=== PATIENT | male | born 1985 | race Caucasian/White ===

== ENCOUNTER 2018-10-16 13:55 | Emergency (ER) | payer OTHER, SELFPAY ==
--- NOTE | 2018-10-16 14:23 | RAD ---
TWO VIEW CHEST: Indication: Cough. FINDINGS: Lungs are clear. Cardiac silhouette is normal in size. Osseous structures are intact. IMPRESSION: No focal consolidation. POS: [facility]
== END 2018-10-16 14:31 | disposition home or self-care (01) ==
LOC: SCSER 13:55
DX: R05 Cough (principal); F17.220 Nicotine dependence, chewing tobacco, uncomplicated
CPT/HCPCS: 71046

== ENCOUNTER 2018-12-26 12:59 | Outpatient (CLI) | payer MEDICAID, OTHER ==
--- NOTE | 2018-12-26 14:43 | MRI ---
MRI LUMBAR SPINE WITHOUT CONTRAST: Date: 12/26/18 HISTORY: M54.16 lumbar radiculopathy. Right leg pain and back pain. COMPARISON: None. FINDINGS: Aortic contour is nonaneurysmal. No retroperitoneal adenopathy. Kidneys are unremarkable. Paraspinal musculature is normal. No marrow infiltrative process. Conus medullaris terminates at the superior end plate of L2. Levels are as follows: L1-2: Normal disc. No neural foraminal or spinal canal narrowing. L2-3: Normal disc. No neural foraminal or spinal canal narrowing. L3-4: Normal disc. No neural foraminal or spinal canal narrowing. L4-5: Mild disc desiccation and posterior degenerative disc space height loss. Small broad based pos terior disc osteophyte complex with superimposed central annular fissure. There appears to be abutme nt of the right exiting L4 nerve root due the posterior disc osteophyte complex. Moderate facet arthr osis at this level. L5-S1: Mild disc desiccation. Posterior degenerative disc space height loss. There is a small centra l posterior disc protrusion which is central, with caudad extension 2.0 mm. This is superimposed cent ral annular fissure. No neural foraminal or spinal canal narrowing. IMPRESSION: Spondylosis centered at L4-5 and L5-S1 without significant change. There does appear to be right-side d nerve root abutment at L4-5 due to the posterior disc osteophyte complex. POS: [facility]
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
== END 2018-12-26 13:00 | disposition home or self-care (01) ==
LOC: TBSIIMAG 12:59
PROVIDERS: ATTEND Neurological Surgery
DX: M47.26 Other spondylosis with radiculopathy, lumbar region (principal); M47.27 Other spondylosis with radiculopathy, lumbosacral region; M25.78 Osteophyte, vertebrae
CPT/HCPCS: 72131; 72148

== ENCOUNTER 2019-04-08 20:23 | Emergency (ER) | payer MEDICAID ==
[2019-04-08] MEDS ORDERED: Cyclobenzaprine 10 MG TAB ONE (20:51)
[2019-04-08] MEDS ORDERED: Dexamethasone 10 MG/ML VIAL ONE (20:51)
[2019-04-08] MEDS ORDERED: Ketorolac Tromethamine 30 MG/ML VIAL ONE (20:51)
== END 2019-04-08 21:13 | disposition home or self-care (01) ==
LOC: SCSER 20:23
DX: M54.16 Radiculopathy, lumbar region (principal); K21.9 Gastro-esophageal reflux disease without esophagitis; Z79.899 Other long term (current) drug therapy
CPT/HCPCS: 96372; J1100; J1885

== ENCOUNTER 2019-04-09 13:59 | Emergency (ER) | payer MEDICAID ==
[2019-04-09] MEDS ORDERED: Diazepam 5 MG TAB ONE (14:25)
== END 2019-04-09 14:41 | disposition home or self-care (01) ==
LOC: SCSER 13:59
DX: M54.42 Lumbago with sciatica, left side (principal); K21.9 Gastro-esophageal reflux disease without esophagitis; Z79.899 Other long term (current) drug therapy
CPT/HCPCS: 99283

== ENCOUNTER 2019-05-17 18:34 | Emergency (ER) | payer MEDICAID, OTHER ==
[2019-05-17] MEDS ORDERED: Ketorolac Tromethamine 60 MG/2 ML VIAL ONE (18:57)
[2019-05-17] MEDS ORDERED: Clindamycin 150 MG CAP ONE (19:00)
== END 2019-05-17 19:15 | disposition home or self-care (01) ==
LOC: SCSER 18:34
DX: K02.9 Dental caries, unspecified (principal); K21.9 Gastro-esophageal reflux disease without esophagitis
CPT/HCPCS: 96372; 99282; J1885

== ENCOUNTER 2019-06-26 13:38 | Emergency (ER) | payer OTHER, SELFPAY ==
[2019-06-26] MEDS ORDERED: HYDROcodone/Acetaminophen 5/325 mg Tablet ONE (15:16)
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
== END 2019-06-26 16:00 | disposition home or self-care (01) ==
LOC: SCSER 13:38
DX: S39.012A Strain of muscle, fascia and tendon of lower back, initial encounter (principal); K21.9 Gastro-esophageal reflux disease without esophagitis; F17.220 Nicotine dependence, chewing tobacco, uncomplicated; W16.012A Fall into swimming pool striking water surface causing other injury, initial encounter
CPT/HCPCS: 72131

== ENCOUNTER 2019-10-27 01:16 | Emergency (ER) | payer OTHER ==
[2019-10-27] MEDS ORDERED: Fentanyl 100 MCG/2 ML VIAL ONE (01:28)
[2019-10-27] MEDS ORDERED: Adacel (T-DAP) 0.5 ML SYRINGE ONE (01:29)
[2019-10-27] MEDS ORDERED: Ondansetron PF 4 MG/2 ML Vial ONE (01:29)
[2019-10-27 01:46] LABS: #Basophils 0.1 thou/uL (0.0-0.2); #Eosinphils 0.1 thou/uL (0.0-0.7); #Lymphocytes 1.9 thou/uL (1.20-3.40); #Monocytes 1.1 thou/uL (0.11-0.59); #Neutrophils 14.3 thou/uL (1.40-6.50); %Basophils 0.4 % (0.0-1.0); %Eosinophils 0.3 % (0.0-10.0); %Monocytes 6.5 % (0.0-10.0); %Neutrophils 81.9 % (42.0-75.0); Hemoglobin 14.5 g/dL (14.0-18.0); Mean Corpuscular HGB CONC 35.5 g/dL (32.0-36.0); Mean Corpuscular Hemoglobin 31.4 pg (27.0-31.0); Mean Corpuscular Volume 88.3 fL (78.0-98.0); Mean Platelet Volume 6.2 fL (7.4-10.4); Platelet Count 365 thou/uL (130-400); RBC Distribution Width 11.6 % (11.5-14.5); Red Blood Cell (RBC) Count 4.62 mill/uL (4.70-6.10); White Blood Cell (WBC) Count 17.5 thou/uL (4.8-10.8)
[2019-10-27 02:04] LABS: ALT (SGPT) 24 U/L (8-55); AST (SGOT) 19 U/L (5-34); Albumin 4.7 g/dL (3.5-5.0); Alkaline Phosphatase 69 U/L (40-110); Anion Gap 18 mmol/L (10-20); BUN (Urea Nitrogen) 10 mg/dL (8.9-20.6); Bilirubin, Total 0.6 mg/dL (0.2-1.2); Calc. Creatinine Clearance 0 mL/min (70-130); Calcium 9.3 mg/dL (7.8-10.44); Carbon Dioxide 21 mmol/L (22-29); Chloride 105 mmol/L (98-107); Estimated GFR-MDRD 80; Globulin 2.9 g/dL (2.4-3.5); Glucose 113 mg/dL (70-105); Potassium 3.4 mmol/L (3.5-5.1); Protein, Total 7.6 g/dL (6.0-8.3); Sodium 141 mmol/L (136-145)
[2019-10-27] MEDS ORDERED: Morphine 4 MG/ML VIAL ONE (02:09)
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
[2019-10-27] MEDS ORDERED: Iopamidol-370 76% 500 ML 1 ML ONE (11:02)
== END 2019-10-27 02:33 | disposition home or self-care (01) ==
LOC: ERS 01:16
DX: S70.02XA Contusion of left hip, initial encounter (principal); S70.01XA Contusion of right hip, initial encounter; K21.9 Gastro-esophageal reflux disease without esophagitis; F17.220 Nicotine dependence, chewing tobacco, uncomplicated; V86.99XA Unspecified occupant of other special all-terrain or other off-road motor vehicle injured in nontraffic accident, initial encounter
CPT/HCPCS: 36415; 70450; 71045; 71260; 72125; 72170; 74177; 80053; 85025; 90471; 90715; 94760; 96374; 96375; J2270; J2405; J3010; L0120; Q9967

== ENCOUNTER 2019-12-24 08:28 | Emergency (ER) | payer OTHER ==
[2019-12-24] MEDS ORDERED: Morphine 4 MG/ML VIAL ONE ×2 (08:48→09:59)
[2019-12-24 09:06] LABS: #Eosinphils 0.1 thou/uL (0.0-0.7); #Lymphocytes 2.4 thou/uL (1.20-3.40); #Monocytes 0.6 thou/uL (0.11-0.59); #Neutrophils 3.3 thou/uL (1.40-6.50); %Basophils 0.5 % (0.0-1.0); %Eosinophils 1.6 % (0.0-10.0); %Lymphocytes 37.1 % (21.0-51.0); %Monocytes 9.8 % (0.0-10.0); %Neutrophils 51.1 % (42.0-75.0); Hemoglobin 12.7 g/dL (14.0-18.0); Mean Corpuscular HGB CONC 33.8 g/dL (32.0-36.0); Mean Corpuscular Hemoglobin 29.6 pg (27.0-31.0); Mean Corpuscular Volume 87.5 fL (78.0-98.0); Mean Platelet Volume 6.2 fL (7.4-10.4); Platelet Count 228 thou/uL (130-400); RBC Distribution Width 11.6 % (11.5-14.5); White Blood Cell (WBC) Count 6.4 thou/uL (4.8-10.8)
[2019-12-24] MEDS ORDERED: Diazepam 10 MG/2 ML SYRINGE ONE (09:11)
[2019-12-24] MEDS ORDERED: Dexamethasone 10 MG/ML VIAL ONE (09:12)
[2019-12-24 09:39] LABS: ALT (SGPT) 19 U/L (8-55); AST (SGOT) 12 U/L (5-34); Albumin 3.8 g/dL (3.5-5.0); Alkaline Phosphatase 52 U/L (40-110); Anion Gap 12 mmol/L (10-20); BUN (Urea Nitrogen) 11 mg/dL (8.9-20.6); Bilirubin, Total 0.3 mg/dL (0.2-1.2); Calc. Creatinine Clearance 0 mL/min (70-130); Calcium 8.4 mg/dL (7.8-10.44); Carbon Dioxide 24 mmol/L (22-29); Chloride 108 mmol/L (98-107); Estimated GFR-MDRD Greater than 90; Globulin 2.2 g/dL (2.4-3.5); Glucose 86 mg/dL (70-105); Sodium 140 mmol/L (136-145)
== END 2019-12-24 11:30 | disposition home or self-care (01) ==
LOC: ERS 08:28
DX: M54.5 Low back pain (principal); K21.9 Gastro-esophageal reflux disease without esophagitis; F17.220 Nicotine dependence, chewing tobacco, uncomplicated; Z79.899 Other long term (current) drug therapy
CPT/HCPCS: 80053; 85025; 96361; 96374; 96375; 96376; J1100; J2270; J3360

== ENCOUNTER 2019-12-25 17:30 | Emergency (ER) | payer OTHER ==
[2019-12-25] MEDS ORDERED: Ondansetron ODT 4 MG TAB ONE (18:12)
[2019-12-25] MEDS ORDERED: Morphine 4 MG/ML VIAL ONE (18:12)
[2019-12-25] MEDS ORDERED: Diazepam 10 MG/2 ML SYRINGE IM SCH (18:30)
[2019-12-25] MEDS ORDERED: Diazepam 10 MG/2 ML SYRINGE ONE (18:35)
== END 2019-12-25 20:01 | disposition home or self-care (01) ==
LOC: ERS 17:30
DX: M54.5 Low back pain (principal); G89.29 Other chronic pain; F17.220 Nicotine dependence, chewing tobacco, uncomplicated; K21.9 Gastro-esophageal reflux disease without esophagitis; Z79.899 Other long term (current) drug therapy
CPT/HCPCS: 96372; 99283; J2270; J3360; Q0162

== ENCOUNTER 2020-05-06 10:34 | Outpatient (CLI) | payer OTHER ==
--- NOTE | 2020-05-06 11:31 | MRI ---
MR CERVICAL SPINE WITHOUT CONTRAST INDICATION: 35-year-old male with cervical radiculopathy; pain radiating down left arm and left chest for 2 months TECHNIQUE: Multiplanar multisequence MR images were obtained of the cervical spine without contrast. COMPARISON: None FINDINGS: Posterior fossa: Within normal limits. Bone marrow signal intensity: Normal Spinal alignment: Normal. Craniocervical junction: Normal appearing. Prevertebral and perivertebral soft tissues: Visualized soft tissues appear within normal limits. Vertebral levels: C2-C3: No appreciable central canal or neuroforaminal narrowing. C3-4: No appreciable central canal or neuroforaminal narrowing. C4-5: No appreciable central canal or neuroforaminal narrowing. C5-C6: There is an asymmetric to the left broad-based disc bulge and uncovertebral hypertrophy with f acet joint degenerative change inducing mild left neural foraminal narrowing. Mild broad-based bulge causes mild central canal narrowing without definite cord compression. C6-C7:, There is a mild broad-based bulge inducing mild central canal narrowing without cord compress ion. There is facet hypertrophy. There is mild bilateral neural foraminal narrowing. C7-T1: No appreciable central canal or neuroforaminal narrowing. IMPRESSION: 1. Mild spondylosis of the cervical spine with mild central canal narrowing involving C5-6 and C6-7. 2. Mild left neural foraminal narrowing at C5-6. Mild bilateral neural foraminal narrowing at C6-C7.
== END 2020-05-06 10:35 | disposition home or self-care (01) ==
LOC: TBSIIMAG 10:34
PROVIDERS: ATTEND Neurological Surgery
DX: M47.22 Other spondylosis with radiculopathy, cervical region (principal); M48.02 Spinal stenosis, cervical region
CPT/HCPCS: 72141

== ENCOUNTER 2020-07-16 06:15 | Day surgery (SDC) | payer OTHER ==
[2020-07-11 10:40] VITALS: BMI 32.3
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
[2020-07-16] MEDS ORDERED: Thrombin 5000 UNITS/5 ML VIAL ONE (06:24)
[2020-07-16] MEDS ORDERED: Fentanyl 100 MCG/2 ML VIAL ONE ×4 (07:03→09:35)
[2020-07-16] MEDS ORDERED: Midazolam HCl 2 mg/2 ml Vial ONE (07:19)
[2020-07-16] MEDS ORDERED: Cyclobenzaprine 10 MG TAB ONE (09:17)
[2020-07-16] MEDS ORDERED: Tamsulosin HCl 0.4 MG CAP ONE (09:18)
[2020-07-16] MEDS ORDERED: Morphine 2 MG/ML VIAL ONE ×3 (10:18→11:18)
[2020-07-16] MEDS ORDERED: Rocuronium Bromide 10 MG/ML (10ML VIAL) ONE (10:21)
[2020-07-16] MEDS ORDERED: Lidocaine 1% PF 5 ML VIAL ONE (10:21)
[2020-07-16] MEDS ORDERED: PROPOFOL 200 MG/20 ML VIAL ONE (10:21)
[2020-07-16] MEDS ORDERED: Glycopyrrolate 0.2 MG/ML 5 ML SYRINGE ONE (10:21)
[2020-07-16] MEDS ORDERED: Ondansetron PF 4 MG/2 ML Vial ONE (10:21)
[2020-07-16] MEDS ORDERED: HYDROcodone/Acetaminophen 5/325 mg Tablet ONE (10:52)
--- NOTE | 2020-07-16 11:22 | OP ---
DATE OF PROCEDURE: 07/16/2020 NEWSPAPER CORRESPONDENT: Paddy Clark PA-C INDICATION: Pain. DIAGNOSIS: Cervical radiculopathy. PROCEDURE PERFORMED: Anterior cervical diskectomy and fusion, C6-C7. ANESTHESIA: General. DESCRIPTION OF PROCEDURE: The patient was brought into the operating room and placed under general anesthesia. He was placed on table in supine position. A transverse incision was planned over the lateral aspect of the neck on the right. After prepping and draping and after an appropriate preoperative pause, the incision was created. The underlying platysma muscle was identified and incised. A blunt tissue plane was used to gain access to the prevertebral space. A self-retaining retractor was placed, and a C-arm images were obtained to confirm the appropriate level. After confirming the appropriate level, an annulotomy was performed in the C6-C7 disk space, where all disk material as well as anterior and posterior osteophytes were removed until the underlying thecal sac and exiting nerve roots were decompressed. After completing the decompression, a 7-mm lordotic PEEK cage packed with allograft and autograft material was placed in the interbody space. A separate plate was then fashioned to the front of spine and secured with 4 fixed screws. Midline and lateral structures were inspected and found to be free from significant trauma. The wound was irrigated. Hemostasis was maintained throughout. The wound was then closed in anatomic layers, and a pressure dressing was applied. There were no known procedural complications. Job ID: [id number]
== END 2020-07-16 12:11 | disposition home or self-care (01) ==
LOC: SDC 06:15
PROVIDERS: ATTEND Neurological Surgery
PROC: 0RG10A0 Fusion of Cervical Vertebral Joint with Interbody Fusion Device, Anterior Approach, Anterior Column, Open Approach (ICD-10-PCS; principal; 2020-07-16)
DX: M54.12 Radiculopathy, cervical region (principal); Z88.5 Allergy status to narcotic agent; Z88.6 Allergy status to analgesic agent; Z79.899 Other long term (current) drug therapy
CPT/HCPCS: 76000; C1713; C1776; J0690; J2250; J2270; J2405; J2704; J3010

== ENCOUNTER 2021-12-11 11:36 | Outpatient (CLI) | payer OTHER | END 2021-12-11 11:37 | disposition home or self-care (01) | LOC: SCSRAD 11:36 | PROVIDERS: ATTEND Family Medicine | DX: U09.9 Post COVID-19 condition, unspecified (principal) | CPT/HCPCS: 71046 ==

== ENCOUNTER 2022-10-22 22:22 | Emergency (ER) | payer OTHER ==
[2022-10-22] MEDS ORDERED: Acetaminophen 500 MG TAB ONE (22:44)
[2022-10-22] MEDS ORDERED: Mag-Al 1200 mg/1200 mg/30 ML UDCUP ONE (22:44)
[2022-10-22] MEDS ORDERED: Lidocaine Viscous Sol 2% 15 ml UD Cup ONE (22:44)
[2022-10-22 22:49] LABS: #Eosinphils 0.2 thou/uL (0.0-0.7); #Lymphocytes 2.9 thou/uL (1.20-3.40); #Monocytes 1.1 thou/uL (0.11-0.59); #Neutrophils 7.5 thou/uL (1.40-6.50); %Basophils 0.4 % (0.0-1.0); %Eosinophils 1.6 % (0.0-10.0); %Lymphocytes 24.7 % (21.0-51.0); %Neutrophils 64.3 % (42.0-75.0); Mean Corpuscular HGB CONC 33.7 g/dL (32.0-36.0); Mean Corpuscular Hemoglobin 29.8 pg (27.0-31.0); Mean Corpuscular Volume 88.5 fl (78.0-98.0); Mean Platelet Volume 6.5 fL (7.4-10.4); Platelet Count 340 10x3/uL (130-400); RBC Distribution Width 11.6 % (11.5-14.5); Red Blood Cell (RBC) Count 5.03 mill/uL (4.70-6.10); White Blood Cell (WBC) Count 11.7 10x3/uL (4.8-10.8)
[2022-10-22 23:13] LABS: ALT (SGPT) 31 U/L (8-55); AST (SGOT) 21 U/L (5-34); Albumin 4.3 g/dL (3.5-5.0); Alkaline Phosphatase 93 U/L (40-110); Anion Gap 13 mmol/L (10-20); BUN (Urea Nitrogen) 13 mg/dL (8.9-20.6); Bilirubin, Total 0.5 mg/dL (0.2-1.2); Calc. Creatinine Clearance 0 mL/min (70-130); Calcium 8.9 mg/dL (7.8-10.44); Carbon Dioxide 26 mmol/L (22-29); Chloride 102 mmol/L (98-107); Estimated GFR 103; Globulin 3.4 g/dL (2.4-3.5); Glucose 108 mg/dL (70-105); Potassium 3.9 mmol/L (3.5-5.1); Protein, Total 7.7 g/dL (6.0-8.3); Sodium 137 mmol/L (136-145)
[2022-10-22 23:42] LABS: SARS-CoV-2 NAA Rapid Test Not Detected (NotDetected)
== END 2022-10-22 23:43 | disposition home or self-care (01) ==
LOC: ERS 22:22
DX: R07.9 Chest pain, unspecified (principal); K21.9 Gastro-esophageal reflux disease without esophagitis; F17.220 Nicotine dependence, chewing tobacco, uncomplicated; Z20.822 Contact with and (suspected) exposure to COVID-19
CPT/HCPCS: 36415; 71045; 80053; 84484; 85025; 85379; 93005